=== PATIENT | male | born 1965 | race Caucasian/White ===

== ENCOUNTER 2024-06-06 11:17 | Emergency (ER) | payer MEDICAID, SELFPAY ==
[2024-06-06 11:37] VITALS: BP 148/66; PULSE 66; RESP 18; TEMP 36.4; O2SAT 96; BMI 36.6
--- NOTE | 2024-06-06 12:50 | ED.GENADULT ---
HPI - General Adult General Chief complaint: Extremity Pain/Injury, Upper Stated complaint: shoulder pain Time Seen by Provider: 06/06/24 11:26 History of Present Illness HPI narrative: This 58-year-old male comes in with left neck and shoulder pain which radiates down his arm. He states that these symptoms have been present for the past 3 months or so. He does not report any recent injury event or strenuous activity. He states that he has poor ability to sleep at night because of shoulder pain. He reports pain radiating from his neck down to his arm and his hand on the left side. He also reports decreased range of motion of his shoulder. Related Data Home Medications ?Medication ?Instructions ?Recorded ?Confirmed melatonin 5 mg capsule 5 mg PO HS 06/06/24 06/06/24 Previous Rx's ?Medication ?Instructions ?Recorded cyclobenzaprine 10 mg tablet 10 mg PO TID #15 tabs 06/06/24 ketorolac 10 mg tablet 10 mg PO Q8H 5 days #15 tabs 06/06/24 methylprednisolone 4 mg tablets in See Rx Instructions PO .COMPLEX 06/06/24 a dose pack (Medrol (Gurjit)) #21 ea Allergies Allergy/AdvReac Type Severity Reaction Status Date / Time No Known Drug Allergies Allergy Verified 06/06/24 11:36 Review of Systems Status of ROS: Reports: 10 or more systems reviewed and unremarkable except as noted in History and below Narrative: Constitutional: No fevers, no weight gain or loss. Eyes: No discharge. No vision changes. HENT: No congestion, no sore throat, no ear pain. Cardiovascular: No chest pain, no palpitations. Respiratory: No shortness of breath, no wheezes, no cough. Gastrointestinal: No abdominal pain, no vomiting, no diarrhea. Genitourinary: No dysuria, no hematuria. Musculoskeletal: Pain radiating from left side of the neck down into his left hand. Decreased range of motion of the left shoulder. Skin: No rashes, no pruritis. Neurological: No dizziness, weakness, sensory change, speech change. Endo/Heme/Allergies: No bruising or bleeding. No polydipsia. Pysch: no suicidality, no anxiety, no insomnia. All other systems reviewed and are negative. PFSH PFSH Social History Smoking Status: Never smoker How often do you have a drink containing alcohol: never AUDIT-C Alcohol total score: 0 Non-prescribed substance use: denies use Exam Narrative: Exam Narrative: Constitutional: Well-developed, well-nourished, no acute distress. HEENT: Normocephalic, atraumatic. Neck: Normal range of motion. Nontender. Supple. Heart: Regular. No murmurs. Normal rate. Intact distal pulses. Lungs: Clear to auscultation. No chest discomfort. No wheezes, rhonchi, or rales. Abdomen: Normal bowel sounds. Nontender. No rebound tenderness. Genitalia: Deferred. Back: No midline tenderness. Normal range of motion. Extremities: Left arm has a lump on the deltoid laterally typical of a lipoma. His range of motion of his left arm is significantly reduced. He is able to abduct to about 45? likely due to adhesive capsulitis. Skin: Intact. No rash. Warm. No erythema or pallor. Neurologic: No altered sensation. No weakness. Alert and oriented. Spurling's test is positive when extending his neck and rotating to the left. He has symptoms radiating down his arm when doing so. Psychiatric: No suicidality. No anxiety or depression. No insomnia. Nursing notes and vitals signs are reviewed. Const: Vital Signs, click to edit/add: Vital Signs - 24 hr 06/06/24 11:37 Temperature 97.5 F L Pulse Rate [Pulse Oximeter] 66 Respiratory Rate 18 Blood Pressure [Ri ght Upper Arm] 148/66 H Pulse Oximetry 96 Oxygen Delivery Me thod Room Air Course Vital Signs Vital signs: Initial Vital Signs Temperature 97.5 F L 06/06/24 11:37 Temperature Source Temporal Artery Scan 06/06/24 11:37 Pulse Rate 66 06/06/24 11:37 Pulse Rhythm Regular 06/06/24 11:37 Respiratory Rate 18 06/06/24 11:37 Blood Pressure 148/66 H 06/06/24 11:37 Blood Pressure Mean 93 06/06/24 11:37 Blood Pressure Position Supine 06/06/24 11:37 Pulse Oximetry 96 06/06/24 11:37 Oxygen Delivery Method Room Air 06/06/24 11:37 Vital Signs Temperature 97.5 F L 06/06/24 11:37 Pulse Rate 66 06/06/24 11:37 Respiratory Rate 18 06/06/24 11:37 Blood Pressure 148/66 H 06/06/24 11:37 Pulse Oximetry 96 06/06/24 11:37 Oxygen Delivery Method Room Air 06/06/24 11:37 Temperature 97.5 F L 06/06/24 11:37 Pulse Rate 66 06/06/24 11:37 Respiratory Rate 18 06/06/24 11:37 Blood Pressure 148/66 H 06/06/24 11:37 Pulse Oximetry 96 06/06/24 11:37 Oxygen Delivery Method Room Air 06/06/24 11:37 Medical Decision Making MDM Narrative Medical decision making narrative: This patient comes in with neck and shoulder pain radiating down his left arm as described above. There was no injury event that indicates a need today for imaging. He may need a MRI has his symptoms are suggestive of cervical radiculopathy with a positive Spurling's test. He also has significant decreased range of motion of his arm and again no particular injury event to trigger this. This seems to be suspicious for adhesive capsulitis. The patient did receive an intra-articular injection of lidocaine and 40 mg of triamcinolone injected into the left shoulder joint. I also provided prescriptions for Toradol, Flexeril, and Medrol Dosepak. I recommended that he follow-up with orthopedic clinic and the spine clinic for ongoing management. Discharge Plan Discharge Clinical Impression: Cervical radiculopathy, Adhesive capsulitis Additional Instructions: Take medication as needed and indicated. Follow-up with spine clinic or orthopedic clinic for ongoing management. Call [phone] for appointment. Return if worsening. Prescriptions: New cyclobenzaprine 10 mg tablet 10 mg PO TID Qty: 15 0RF ketorolac 10 mg tablet 10 mg PO Q8H 5 Days Qty: 15 0RF methylprednisolone [Medrol (Gurjit)] 4 mg tablets,dose pack See Rx Instructions .ROUTE .COMPLEX Qty: 21 0RF Rx Instructions: orally per package directions No Action melatonin 5 mg capsule 5 mg PO HS Follow Up/Referrals: Provider,Not a Local [Primary Care Provider] - Stand Alone Forms: [employer] Info Instructions
== END 2024-06-06 13:31 | disposition home or self-care (01) ==
PROVIDERS: Emergency Provider Emergency Medicine Emergency Medical Services
DX: M54.12 Radiculopathy, cervical region (principal); M75.02 Adhesive capsulitis of left shoulder
CPT/HCPCS: 99284; T1013